=== PATIENT | female | born 1950 | race Caucasian/White ===

== ENCOUNTER 2020-02-15 09:15 | Outpatient (CLI) | payer MEDICARE, BC, SELFPAY ==
[2020-02-15 09:39] LABS: Basophils % 0.8 %; Eosinophils # 0.1 10^3/uL (0.0-0.8); Eosinophils % 2.5 %; Lymphocytes # 1.3 10^3/uL (0.8-4.8); Mean Corpuscular HGB Conc 32.5 g/dL (30.0-36.0); Mean Corpuscular Volume 92.4 fL (81-99); Mean Platelet Volume 10.7 fL (7.4-10.4); Monocytes # 0.5 10^3/uL (0.2-0.9); Monocytes % 11.3 %; Neutrophils # 2.8 10^3/uL (1.8-7.7); Neutrophils % 59.2 %; Nucleated Red Blood Cells % 0 %; Platelet Count 200 10^3/cmm (130-400); Red Blood Count 4.33 10^6/uL (4.1-5.3); Red Cell Distribution Width 13.1 % (12.1-15.1); White Blood Count 4.8 10^3/uL (4.0-10.0)
[2020-02-15 09:59] LABS: Alanine Aminotransferase 15 U/L (0-33); Albumin Level 4.4 g/dL (3.5-5.2); Alkaline Phosphatase 86 IU/L (35-105); Anion Gap 10.9 (5-19); Aspartate Amino Transferase 21 U/L (0-32); Blood Urea Nitrogen 15 mg/dL (8-23); Calcium 9.9 mg/dL (8.5-10.5); Carbon Dioxide 32 mmol/L (22-29); Chloride 105 mmol/L (98-107); Globulin 2.6 g/dL (1.3-4.6); Glomerular Filtration Rate 99.1 mL/min (90-130); Glucose 72 mg/dL (65-115); Osmolality Calculated 293 mOsm/kg (285-295); Potassium 3.9 mmol/L (3.5-5.1); Sodium 144 mmol/L (136-145); Total Bilirubin 0.2 mg/dL (0.15-1.2)
--- NOTE | 2020-02-15 11:23 | ONC FU_ITS ---
Dr. 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 The patient presented with iron deficiency anemia. Her colonoscopy on 02/22/2017 showed a malignant appearing lesion in the right colon. Biopsy showed poorly differentiated adenocarcinoma. The procedure also included removal of an adenomatous polyp from the transverse colon. She then underwent laparoscopic hand-assisted right hemicolectomy with primary anastomosis. Pathology showed poorly differentiated infiltrating adenocarcinoma measuring 6.0 cm in greatest dimension. Tumor was noted to invade through the muscularis propria into pericolonic tissues. There was evidence of lymphovascular invasion. There was involvement in 2 of 31 lymph nodes. She was seen initially on 05/20/2017. Further pathologic evaluation included MSI testing which showed loss of nuclear staining of MLH1 and PMS2, consistent with a mismatch repair deficient tumor. Given that finding, he recommended adjuvant chemotherapy with modified FOLFOX. She eventually did agree to treatment. She began her 1st cycle on 07/06/2017. She had significant side effects with her initial chemotherapy treatment, including nausea/vomiting, fatigue, and neuropathy. She had dose reductions in both the oxaliplatin and 5-FU with cycle 2, and beginning with cycle 3 on 08/10/17 and 08/26/17 the oxaliplatin was omitted. At that point, patient decided to take a break from chemotherapy until 09/21/2017 when agreed to complete 4 more cycle of modified dose of FOLFOX e.g. total 6 instead of recommended 12 of modified FOLFOX .Follow-up colonoscopy was done by Dr. Sneed in [place] in March 2018, as per patient it was charissa lFollow-up CT scan of abdomen pelvis done on 05/29/2019 showed no evidence of metastatic disease secondary to colon carcinoma. But there are few scattered hypodensities within the liver which are too small to characterize and follow-up CT scan is recommended in 3 months to document stability as early metastatic disease cannot be ruled out her tumor marker CEA checked on 05/29/2019 was 2.2 compared to 2.1 on 01/26/2019 and ALT was 18 AST was 21 with a normal hemoglobin/hematocritCT PET scan was done on 08/25/2019, showed no evidence of recurrent or residual malignancy. The liver hypodensities described the CT scan do not demonstrate abnormal FDG. And her CK was 1.9. Came for follow-up, denies any specific complaints, no nausea vomiting, no fever chills, no diarrhea constipation, no melena or hematochezia, no jaundice, no weight loss, appetite is good Medications: Lutein 1 (20 mg) Tablet Oral daily, Multiple Vitamins/Womens 1 Tablet Oral b.i.d. Allergies: Codeine Sulfate Review of Systems: Constitutional - Appetite is fair and weight is decreasing. No fever, chills, hot flashes, or night sweats. Energy level is poor, Pt reports significant fatigue, ENMT - No sinus congestion/drainage. No mouth sores. No sore throat or difficulty swallowing, Hematologic/Lymphatic - No abnormal bruising or bleeding, Respiratory - No shortness of breath. No cough. No pleuritic pain or hemoptysis, Cardiovascular - No angina pain. No palpitations, Gastrointestinal - No nausea or vomiting. No heartburn or acid reflux. Occasional diarrhea, no constipation. No blood in the stool or black stools, Genitourinary (F) - No dysuria or hematuria. No urinary frequency. No urgency or incontinence, Musculoskeletal - No joint or bone pain, Integumentary - Denies skin rashes or lesions, Neurologic - No headache or dizziness. No numbness/paresthesias or other focal neurologic symptoms, Psychiatric - No anxiety or depression. No insomnia. Vital Signs: Performed on Feb 15, 2020 11:05 Height - 66.00 in Weight - 105.4 lbs BSA - 1.52 sq.m BMI - 17.01 (LOW) Temperature - 97.2 F (LOW) Pulse - 67 /min Respiration - 18 /min BP - 115/72 mm(hg) O2 Sat - 100 % Pain - 0 Performance Status: 0 - Fully active, able to carry on all predisease activities without restrictions. (ECOG) Physical Examination: ENMT - No mouth sores, no jaundice, Respiratory - Lungs are clear, Cardiovascular - Regular rate and rhythm of heart, Abdomen - Soft, bowel sounds present, nontender, no mass palpable, Extremities - No visible edema or rash. Lab/Imaging: Test performed on Feb 15, 2020 09:26 Sodium 144 mmol/L Potassium 3.9 mmol/L Chloride 105 mmol/L CO2 32 mmol/L Anion Gap 10.9 BUN 15 mg/dL Creatinine 0.6 mg/dL Cr Clearance (Est) 66.7900 mL/min eGFR 99.1 mL/min Glucose 72 mg/dL Calcium 9.9 mg/dL Protein, Total 7.0 g/dL Albumin 4.4 g/dL Globulin 2.6 g/dL Bilirubin, Total 0.2 mg/dL ALT (SGPT) 15 U/L AST (SGOT) 21 U/L Alkaline Phosphatase 86 IU/L WBC 4.8 10 3/uL RBC 4.33 10 6/uL HGB 13.0 g/dL HCT 40.0 % MCV 92.4 fL MCH 30.0 pg MCHC 32.5 g/dL RDW 13.1 % Platelet Count 200 10 3/cmm MPV 10.7 fL Neutrophils 2.8 10 3/uL Lymphocytes 1.3 10 3/uL Monocytes 0.5 10 3/uL Eosinophils 0.1 10 3/uL Basophils 0.0 10 3/uL Neutrophil % 59.2 % Lymphocyte % 26.0 % Monocyte % 11.3 % Eosinophil % 2.5 % Basophils % 0.8 % Test performed on Aug 31, 2019 09:02 CEA 1.9 ng/mL Impression: 1. 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 2. She underwent hand-assisted laparoscopic right hemicolectomy on 02/22/2017. 3. s/p adjuvant chemotherapy with modified FOLFOX, cycle 1 beginning on 07/06/2017 and on 07/20/17 ,Oxaliplatin was discontinued because of progressive neuropathy she received 2 cycles of 5-FU infusion on 08/10/2017 and 08/26/2017. Patient took break from chemotherapy But because of mismatch repair deficient tumor oxaliplatin was added again when patient decided to restart her chemotherapy on 09/21/2017 for 4 more modified dose FOLFOX with reduced dose oxaliplatin and completed total 6 cycle of modified FOLFOX on 11/23/2017. Follow-up colonoscopy was done in March [address] 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 Follow-up CT scan of abdomen is recommended in 3 months to document stability as one of the differential could be early metastatic disease. Regarding her labs checked on 05/29/2019 showed LFTs and hemoglobin/hematocrit within normal limits and CEA 2.2 Plan: Discussed with patient regarding her labs white blood count 4.8 hemoglobin 13 crit 40 platelets 200,000 CMP within normal limits Clinically, patient doing well, no signs symptom suggestive of recurrence of disease and follow-up labs within normal range, will continue to monitor and she will return to clinic in 6 months with CBC CMP and CEA Signed By: Cathy Chang M.D. <<Signature on File>>
== END 2020-02-15 09:16 | disposition home or self-care (01) ==
LOC: ONCMED 09:20
PROVIDERS: PCP Family Medicine; Visit Provider Internal Medicine Hematology & Oncology
DX: Z08 Encounter for follow-up examination after completed treatment for malignant neoplasm (principal); Z85.038 Personal history of other malignant neoplasm of large intestine
CPT/HCPCS: 80053; 85025; G0463

== ENCOUNTER 2020-08-21 10:56 | Outpatient (CLI) | payer MEDICARE, BC, SELFPAY ==
[2020-08-21 12:10] LABS: Basophils % 0.4 %; Eosinophils # 0.1 10^3/uL (0.0-0.8); Eosinophils % 1.2 %; Hematocrit 40.3 % (37.0-47.0); Hemoglobin 12.9 g/dL (11.5-15.3); Lymphocytes # 1.2 10^3/uL (0.8-4.8); Mean Corpuscular Hemoglobin 29.5 pg (28.0-34.0); Mean Corpuscular Volume 92.2 fL (81-99); Mean Platelet Volume 10.9 fL (7.4-10.4); Monocytes # 0.5 10^3/uL (0.2-0.9); Monocytes % 9.6 %; Neutrophils # 3.25 10^3/uL (1.8-7.7); Neutrophils % 63.2 %; Nucleated Red Blood Cells % 0 %; Platelet Count 173 10^3/cmm (130-400); Red Blood Count 4.37 10^6/uL (4.1-5.3); Red Cell Distribution Width 13.2 % (12.1-15.1); White Blood Count 5.1 10^3/uL (4.0-10.0)
[2020-08-21 12:35] LABS: Carcinoembryonic Antigen 2.1 ng/mL (0.0-4.7)
[2020-08-21 12:46] LABS: Alanine Aminotransferase 18 U/L (0-33); Albumin Level 4.1 g/dL (3.5-5.2); Alkaline Phosphatase 100 IU/L (35-105); Aspartate Amino Transferase 19 U/L (0-32); Blood Urea Nitrogen 16 mg/dL (8-23); Calcium 9.4 mg/dL (8.5-10.5); Carbon Dioxide 28 mmol/L (22-29); Chloride 105 mmol/L (98-107); Globulin 2.7 g/dL (1.3-4.6); Glomerular Filtration Rate 82.7 mL/min (90-130); Glucose 98 mg/dL (65-115); Osmolality Calculated 291 mOsm/kg (285-295); Sodium 140 mmol/L (136-145); Total Bilirubin 0.3 mg/dL (0.15-1.2); Total Protein 6.8 g/dL (6.6-8.7)
--- NOTE | 2020-08-21 14:04 | ONC FU_ITS ---
Dr. 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 The patient presented with iron deficiency anemia. Her colonoscopy on 02/22/2017 showed a malignant appearing lesion in the right colon. Biopsy showed poorly differentiated adenocarcinoma. The procedure also included removal of an adenomatous polyp from the transverse colon. She then underwent laparoscopic hand-assisted right hemicolectomy with primary anastomosis. Pathology showed poorly differentiated infiltrating adenocarcinoma measuring 6.0 cm in greatest dimension. Tumor was noted to invade through the muscularis propria into pericolonic tissues. There was evidence of lymphovascular invasion. There was involvement in 2 of 31 lymph nodes. She was seen initially on 05/20/2017. Further pathologic evaluation included MSI testing which showed loss of nuclear staining of MLH1 and PMS2, consistent with a mismatch repair deficient tumor. Given that finding, he recommended adjuvant chemotherapy with modified FOLFOX. She eventually did agree to treatment. She began her 1st cycle on 07/06/2017. She had significant side effects with her initial chemotherapy treatment, including nausea/vomiting, fatigue, and neuropathy. She had dose reductions in both the oxaliplatin and 5-FU with cycle 2, and beginning with cycle 3 on 08/10/17 and 08/26/17 the oxaliplatin was omitted. At that point, patient decided to take a break from chemotherapy until 09/21/2017 when agreed to complete 4 more cycle of modified dose of FOLFOX e.g. total 6 instead of recommended 12 of modified FOLFOX .Follow-up colonoscopy was done by Dr. Sneed in [place] in March 2018, as per patient it was charissa lFollow-up CT scan of abdomen pelvis done on 05/29/2019 showed no evidence of metastatic disease secondary to colon carcinoma. But there are few scattered hypodensities within the liver which are too small to characterize and follow-up CT scan is recommended in 3 months to document stability as early metastatic disease cannot be ruled out her tumor marker CEA checked on 05/29/2019 was 2.2 compared to 2.1 on 01/26/2019 and ALT was 18 AST was 21 with a normal hemoglobin/hematocritCT PET scan was done on 08/25/2019, showed no evidence of recurrent or residual malignancy. The liver hypodensities described the CT scan do not demonstrate abnormal FDG. And her CK was 1.9. Came for follow-up, denies any specific complaints except generalized weakness and fatigue and persistent mild peripheral neuropathy otherwise no fever chills, no nausea or vomiting, no diarrhea constipation, no melena or hematochezia no abdominal pain, appetite is good. No jaundice. Medications: Glucosamine HCl (1500 mg) Tablet Oral daily, Lutein 1 (20 mg) Tablet Oral daily, Multiple Vitamins/Womens 1 Tablet Oral b.i.d. Allergies: Codeine Sulfate Review of Systems: Constitutional - Appetite is fair and weight is decreasing. No fever, chills, hot flashes, or night sweats. Energy level is poor, Pt reports fatigue, ENMT - No sinus congestion/drainage. No mouth sores. No sore throat or difficulty swallowing, Hematologic/Lymphatic - No abnormal bruising or bleeding, Respiratory - No shortness of breath. No cough. No pleuritic pain or hemoptysis, Cardiovascular - No angina pain. No palpitations, Gastrointestinal - No nausea or vomiting. No heartburn or acid reflux. Occasional diarrhea, no constipation. No blood in the stool or black stools, Genitourinary (F) - No dysuria or hematuria. No urinary frequency. No urgency or incontinence, Musculoskeletal - No joint or bone pain, Integumentary - Denies skin rashes or lesions, Neurologic - No headache or dizziness. No numbness/paresthesias or other focal neurologic symptoms, Psychiatric - No anxiety or depression. Positive for insomnia. Vital Signs: Performed on Aug 21, 2020 13:47 Height - 66.00 in Weight - 105.8 lbs (HIGH) BSA - 1.53 sq.m BMI - 17.08 (LOW) Temperature - 98.4 F Pulse - 90 /min Respiration - 16 /min BP - 113/66 mm(hg) O2 Sat - 99 % Pain - 3 Performance Status: 0 - Fully active, able to carry on all predisease activities without restrictions. (ECOG) Physical Examination: ENMT - No mouth sores, no thrush, no jaundice, Respiratory - Lungs are clear to auscultation, Cardiovascular - Regular rate and rhythm of heart, Abdomen - Soft, bowel sounds present, Extremities - No visible edema or rash. Lab/Imaging: Most recent lab results are not available for this patient. Impression: 1. 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 2. She underwent hand-assisted laparoscopic right hemicolectomy on 02/22/2017. 3. s/p adjuvant chemotherapy with modified FOLFOX, cycle 1 beginning on 07/06/2017 and on 07/20/17 ,Oxaliplatin was discontinued because of progressive neuropathy she received 2 cycles of 5-FU infusion on 08/10/2017 and 08/26/2017. Patient took break from chemotherapy But because of mismatch repair deficient tumor oxaliplatin was added again when patient decided to restart her chemotherapy on 09/21/2017 for 4 more modified dose FOLFOX with reduced dose oxaliplatin and completed total 6 cycle of modified FOLFOX on 11/23/2017. Follow-up colonoscopy was done in March [address] Sneed in [place], as per patient it showed no abnormality .Patient also has her Port-A-Cath removed since last visit Mild to moderate Thrombocytopenia due to chemotherapy or low-grade ITP resolved Follow-up CT scan of abdomen pelvis done on 05/29/2019 showed no evidence of metastatic disease secondary to colon cancer but there are a few scattered hypodensities within the liver which are too small to characterize. Follow-up CT scan of abdomen is recommended in 3 months to document stability as one of the differential could be early metastatic disease. Regarding her labs checked on 05/29/2019 showed LFTs and hemoglobin/hematocrit within normal limits and CEA 2.2 Plan: Discussed with patient regarding her labs white blood count 5.1 hemoglobin 12.9 hematocrit 40.3 platelets 173,000 CMP within normal limits CEA 2.1 Clinically, patient is doing well with no new signs symptom suggestive of recurrence of disease her follow-up lab is within normal range including tumor marker, Patient return to clinic in 6 months with CBC CMP Mild peripheral neuropathy, no more worsening rather improving, will continue with supportive care Signed By: Cathy Chang M.D. <<Signature on File>>
== END 2020-08-21 10:57 | disposition home or self-care (01) ==
LOC: ONCMED 10:59
PROVIDERS: PCP Family Medicine; Visit Provider Internal Medicine Hematology & Oncology
DX: Z08 Encounter for follow-up examination after completed treatment for malignant neoplasm (principal); Z85.038 Personal history of other malignant neoplasm of large intestine; G62.0 Drug-induced polyneuropathy; T45.1X5A Adverse effect of antineoplastic and immunosuppressive drugs, initial encounter; Z92.21 Personal history of antineoplastic chemotherapy; Z79.899 Other long term (current) drug therapy
CPT/HCPCS: 36415; 80053; 82378; 85025; G0463

== ENCOUNTER 2021-03-18 12:50 | Outpatient (CLI) | payer MEDICARE, BC, SELFPAY ==
[2021-03-18 14:04] LABS: Basophils % 0.8 %; Eosinophils # 0.1 10^3/uL (0.0-0.8); Eosinophils % 2.5 %; Hematocrit 40.1 % (37.0-47.0); Hemoglobin 12.8 g/dL (11.5-15.3); Lymphocytes # 1.5 10^3/uL (0.8-4.8); Lymphocytes % 29.3 %; Mean Corpuscular HGB Conc 31.9 g/dL (30.0-36.0); Mean Corpuscular Hemoglobin 29.4 pg (28.0-34.0); Mean Corpuscular Volume 92.2 fL (81-99); Mean Platelet Volume 13.2 fL (7.4-10.4); Monocytes # 0.6 10^3/uL (0.2-0.9); Monocytes % 10.6 %; Neutrophils # 2.93 10^3/uL (1.8-7.7); Neutrophils % 56.6 %; Nucleated Red Blood Cells % 0 %; Platelet Count 66 10^3/cmm (130-400); Red Blood Count 4.35 10^6/uL (4.1-5.3); Red Cell Distribution Width 13.1 % (12.1-15.1); White Blood Count 5.2 10^3/uL (4.0-10.0)
[2021-03-18 14:23] LABS: Alanine Aminotransferase 17 U/L (0-33); Albumin Level 4.2 g/dL (3.5-5.2); Alkaline Phosphatase 94 IU/L (35-105); Anion Gap 12.1 (5-19); Aspartate Amino Transferase 20 U/L (0-32); Blood Urea Nitrogen 17 mg/dL (8-23); Calcium 9.9 mg/dL (8.5-10.5); Carbon Dioxide 28 mmol/L (22-29); Chloride 101 mmol/L (98-107); Globulin 2.6 g/dL (1.3-4.6); Glomerular Filtration Rate 98.8 mL/min (90-130); Glucose 88 mg/dL (65-115); Osmolality Calculated 285 mOsm/kg (285-295); Potassium 4.1 mmol/L (3.5-5.1); Sodium 137 mmol/L (136-145); Total Bilirubin 0.3 mg/dL (0.15-1.2); Total Protein 6.8 g/dL (6.6-8.7)
--- NOTE | 2021-03-18 16:35 | ONC FU_ITS ---
Dr. 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 The patient presented with iron deficiency anemia. Her colonoscopy on 02/22/2017 showed a malignant appearing lesion in the right colon. Biopsy showed poorly differentiated adenocarcinoma. The procedure also included removal of an adenomatous polyp from the transverse colon. She then underwent laparoscopic hand-assisted right hemicolectomy with primary anastomosis. Pathology showed poorly differentiated infiltrating adenocarcinoma measuring 6.0 cm in greatest dimension. Tumor was noted to invade through the muscularis propria into pericolonic tissues. There was evidence of lymphovascular invasion. There was involvement in 2 of 31 lymph nodes. She was seen initially on 05/20/2017. Further pathologic evaluation included MSI testing which showed loss of nuclear staining of MLH1 and PMS2, consistent with a mismatch repair deficient tumor. Given that finding, he recommended adjuvant chemotherapy with modified FOLFOX. She eventually did agree to treatment. She began her 1st cycle on 07/06/2017. She had significant side effects with her initial chemotherapy treatment, including nausea/vomiting, fatigue, and neuropathy. She had dose reductions in both the oxaliplatin and 5-FU with cycle 2, and beginning with cycle 3 on 08/10/17 and 08/26/17 the oxaliplatin was omitted. At that point, patient decided to take a break from chemotherapy until 09/21/2017 when agreed to complete 4 more cycle of modified dose of FOLFOX e.g. total 6 instead of recommended 12 of modified FOLFOX .Follow-up colonoscopy was done by Dr. Sneed in [place] in March 2018, as per patient it was charissa lFollow-up CT scan of abdomen pelvis done on 05/29/2019 showed no evidence of metastatic disease secondary to colon carcinoma. But there are few scattered hypodensities within the liver which are too small to characterize and follow-up CT scan is recommended in 3 months to document stability as early metastatic disease cannot be ruled out her tumor marker CEA checked on 05/29/2019 was 2.2 compared to 2.1 on 01/26/2019 and ALT was 18 AST was 21 with a normal hemoglobin/hematocritCT PET scan was done on 08/25/2019, showed no evidence of recurrent or residual malignancy. The liver hypodensities described the CT scan do not demonstrate abnormal FDG. And her CK was 1.9. Came for follow-up, denies any specific complaints, no fever chills, no nausea or vomiting, no diarrhea or constipation, no nosebleed or gum bleed, no melena or hematochezia, no abdominal pain, no jaundice, as per patient she had recent episode of mild sinusitis, now resolved Medications: Glucosamine HCl (1500 mg) Tablet Oral daily, Lutein 1 (20 mg) Tablet Oral daily, Multiple Vitamins/Womens 1 Tablet Oral b.i.d. Allergies: Codeine Sulfate Review of Systems: Review of Systems is not available for this patient. Vital Signs: Performed on Mar 18, 2021 15:46 Height - 66.00 in Weight - 103.6 lbs (LOW) BSA - 1.51 sq.m BMI - 16.72 (LOW) Temperature - 98.1 F (LOW) Pulse - 73 /min Respiration - 18 /min BP - 132/84 mm(hg) O2 Sat - 98 % Pain - 0 Fatigue - 4 Performance Status: 0 - Fully active, able to carry on all predisease activities without restrictions. (ECOG) Physical Examination: ENMT - No mouth sores, no thrush, no jaundice, Respiratory - Lungs are clear to auscultation, Cardiovascular - Regular rate and rhythm of heart, Abdomen - Soft, bowel sounds present, No organomegaly, Extremities - No edema rash or petechia or ecchymosis. Lab/Imaging: Most recent lab results are not available for this patient. Impression: 1. 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 2. She underwent hand-assisted laparoscopic right hemicolectomy on 02/22/2017. 3. s/p adjuvant chemotherapy with modified FOLFOX, cycle 1 beginning on 07/06/2017 and on 07/20/17 ,Oxaliplatin was discontinued because of progressive neuropathy she received 2 cycles of 5-FU infusion on 08/10/2017 and 08/26/2017. Patient took break from chemotherapy But because of mismatch repair deficient tumor oxaliplatin was added again when patient decided to restart her chemotherapy on 09/21/2017 for 4 more modified dose FOLFOX with reduced dose oxaliplatin and completed total 6 cycle of modified FOLFOX on 11/23/2017. Follow-up colonoscopy was done in March [address] Sneed in [place], as per patient it showed no abnormality .Patient also has her Port-A-Cath removed since last visit Mild to moderate Thrombocytopenia due to chemotherapy or low-grade ITP resolved Follow-up CT scan of abdomen pelvis done on 05/29/2019 showed no evidence of metastatic disease secondary to colon cancer but there are a few scattered hypodensities within the liver which are too small to characterize. Follow-up CT scan of abdomen is recommended in 3 months to document stability as one of the differential could be early metastatic disease. Regarding her labs checked on 05/29/2019 showed LFTs and hemoglobin/hematocrit within normal limits and CEA 2.2 Plan: Discussed with patient regarding her labs white blood count 5.2 hemoglobin 12.8 hematocrit 40.1 platelets 66,000 compared to 173,000 previously Clinically, patient is doing well with no new signs symptom suggestive of recurrence of disease, follow-up labs shows drop in her platelet count but no evidence of gross bleeding, her hemoglobin is normal, etiology of mild/moderate thrombocytopenia is unclear but patient has history of unexplained thrombocytopenia in the past which is presumed to 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 And as patient mentioned she had episode of mild sinusitis which resolved, which may have triggered ITP again, will monitor, patient was advised to avoid NSAIDs or aspirin or any trauma, we will review her peripheral blood smear, she will return to clinic in 2 weeks with CBC if there is a progressive thrombocytopenia or any evidence of gross bleeding, will consider intervention and further investigation. Patient was advised in case any evidence of gross bleeding she need to call us otherwise return to clinic in 2 weeks with CBC Signed By: Cathy Chang M.D. <<Signature on File>>
[2021-03-20 18:59] LABS: LAB Peripheral Smear Sent for Review
== END 2021-03-18 12:51 | disposition home or self-care (01) ==
LOC: ONCMED 12:55
PROVIDERS: PCP Family Medicine; Visit Provider Internal Medicine Hematology & Oncology
DX: Z08 Encounter for follow-up examination after completed treatment for malignant neoplasm (principal); Z85.038 Personal history of other malignant neoplasm of large intestine; D69.6 Thrombocytopenia, unspecified; Z79.899 Other long term (current) drug therapy; Z92.21 Personal history of antineoplastic chemotherapy
CPT/HCPCS: 36415; 80053; 80500; 85025; 99214

== ENCOUNTER 2021-04-01 06:14 | Outpatient (CLI) | payer MEDICARE, BC, SELFPAY ==
[2021-04-01 15:51] LABS: Basophils # 0.1 10^3/uL (0.0-0.1); Basophils % 0.7 %; Eosinophils # 0.2 10^3/uL (0.0-0.8); Eosinophils % 2.9 %; Hematocrit 40.6 % (37.0-47.0); Lymphocytes # 1.8 10^3/uL (0.8-4.8); Lymphocytes % 25.4 %; Mean Corpuscular Hemoglobin 29.3 pg (28.0-34.0); Mean Corpuscular Volume 91.6 fL (81-99); Mean Platelet Volume 11.6 fL (7.4-10.4); Monocytes # 0.7 10^3/uL (0.2-0.9); Monocytes % 9.5 %; Neutrophils # 4.24 10^3/uL (1.8-7.7); Neutrophils % 61.2 %; Nucleated Red Blood Cells % 0 %; Platelet Count 151 10^3/cmm (130-400); Red Blood Count 4.43 10^6/uL (4.1-5.3); Red Cell Distribution Width 12.9 % (12.1-15.1); White Blood Count 6.9 10^3/uL (4.0-10.0)
--- NOTE | 2021-04-01 17:20 | ONC FU_ITS ---
Dr. 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 The patient presented with iron deficiency anemia. Her colonoscopy on 02/22/2017 showed a malignant appearing lesion in the right colon. Biopsy showed poorly differentiated adenocarcinoma. The procedure also included removal of an adenomatous polyp from the transverse colon. She then underwent laparoscopic hand-assisted right hemicolectomy with primary anastomosis. Pathology showed poorly differentiated infiltrating adenocarcinoma measuring 6.0 cm in greatest dimension. Tumor was noted to invade through the muscularis propria into pericolonic tissues. There was evidence of lymphovascular invasion. There was involvement in 2 of 31 lymph nodes. She was seen initially on 05/20/2017. Further pathologic evaluation included MSI testing which showed loss of nuclear staining of MLH1 and PMS2, consistent with a mismatch repair deficient tumor. Given that finding, he recommended adjuvant chemotherapy with modified FOLFOX. She eventually did agree to treatment. She began her 1st cycle on 07/06/2017. She had significant side effects with her initial chemotherapy treatment, including nausea/vomiting, fatigue, and neuropathy. She had dose reductions in both the oxaliplatin and 5-FU with cycle 2, and beginning with cycle 3 on 08/10/17 and 08/26/17 the oxaliplatin was omitted. At that point, patient decided to take a break from chemotherapy until 09/21/2017 when agreed to complete 4 more cycle of modified dose of FOLFOX e.g. total 6 instead of recommended 12 of modified FOLFOX .Follow-up colonoscopy was done by Dr. Sneed in [place] in March 2018, as per patient it was charissa lFollow-up CT scan of abdomen pelvis done on 05/29/2019 showed no evidence of metastatic disease secondary to colon carcinoma. But there are few scattered hypodensities within the liver which are too small to characterize and follow-up CT scan is recommended in 3 months to document stability as early metastatic disease cannot be ruled out her tumor marker CEA checked on 05/29/2019 was 2.2 compared to 2.1 on 01/26/2019 and ALT was 18 AST was 21 with a normal hemoglobin/hematocritCT PET scan was done on 08/25/2019, showed no evidence of recurrent or residual malignancy. The liver hypodensities described the CT scan do not demonstrate abnormal FDG. And her CK was 1.9. Episode of self-limiting isolated thrombocytopenia noted on labs March 18, 2021 when her platelet count went down to 66,000 and the repeat CBC on April 01, 2021 shows normal CBC as platelet count recovered 251,000 Came for follow-up, denies any specific complaints, no fever chills, no nausea or vomiting, no diarrhea or constipation, no melena hematochezia, no hemoptysis or hematemesis, no jaundice, no petechia or ecchymosis. Patient states she has lost about 4 to 5 pounds since her last visit in August 2020, patient said she has been dancing and watching her diet Medications: Glucosamine HCl (1500 mg) Tablet Oral daily, Lutein 1 (20 mg) Tablet Oral daily, Multiple Vitamins/Womens 1 Tablet Oral b.i.d. Allergies: Codeine Sulfate Review of Systems: Review of Systems is not available for this patient. Vital Signs: Performed on Apr 01, 2021 16:18 Height - 66.00 in Weight - 102.4 lbs (LOW) BSA - 1.50 sq.m BMI - 16.53 (LOW) Temperature - 98.2 F (LOW) Pulse - 73 /min Respiration - 18 /min BP - 126/80 mm(hg) O2 Sat - 93 % (LOW) Pain - 0 Fatigue - 3 Performance Status: 0 - Fully active, able to carry on all predisease activities without restrictions. (ECOG) Physical Examination: ENMT - No mouth sores, no thrush, no jaundice, Respiratory - Lungs are clear to auscultation, Cardiovascular - Regular rate and rhythm of heart, Abdomen - Soft, bowel sounds present, Extremities - No visible edema. Lab/Imaging: Most recent lab results are not available for this patient. Impression: 1. 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 2. She underwent hand-assisted laparoscopic right hemicolectomy on 02/22/2017. 3. s/p adjuvant chemotherapy with modified FOLFOX, cycle 1 beginning on 07/06/2017 and on 07/20/17 ,Oxaliplatin was discontinued because of progressive neuropathy she received 2 cycles of 5-FU infusion on 08/10/2017 and 08/26/2017. Patient took break from chemotherapy But because of mismatch repair deficient tumor oxaliplatin was added again when patient decided to restart her chemotherapy on 09/21/2017 for 4 more modified dose FOLFOX with reduced dose oxaliplatin and completed total 6 cycle of modified FOLFOX on 11/23/2017. Follow-up colonoscopy was done in March [address] Sneed in [place], as per patient it showed no abnormality .Patient also has her Port-A-Cath removed since last visit Mild to moderate Thrombocytopenia due to chemotherapy or low-grade ITP resolved Follow-up CT scan of abdomen pelvis done on 05/29/2019 showed no evidence of metastatic disease secondary to colon cancer but there are a few scattered hypodensities within the liver which are too small to characterize. Follow-up CT scan of abdomen is recommended in 3 months to document stability as one of the differential could be early metastatic disease. Regarding her labs checked on 05/29/2019 showed LFTs and hemoglobin/hematocrit within normal limits and CEA 2.2 Plan: Discussed with patient regarding her labs white blood count 6.9 hemoglobin 13 hematocrit 40.6 platelets 151,000 compared to 66,000 on March 18, 2021 Clinically, patient doing well with no new signs symptom suggesting of gross bleeding, her repeat CBC shows resolution of isolated thrombocytopenia. We will continue to monitor and she will return to clinic in 6 months with CBC CMP and CEA, patient was advised in case she has any evidence of gross bleeding, petechiae or ecchymosis she did call us otherwise return to clinic as scheduled Signed By: Cathy Chang M.D. <<Signature on File>>
== END 2021-04-01 06:15 | disposition home or self-care (01) ==
LOC: ONCMED 06:16
PROVIDERS: PCP Family Medicine; Visit Provider Internal Medicine Hematology & Oncology
DX: Z08 Encounter for follow-up examination after completed treatment for malignant neoplasm (principal); Z85.038 Personal history of other malignant neoplasm of large intestine; Z79.899 Other long term (current) drug therapy; Z92.21 Personal history of antineoplastic chemotherapy
CPT/HCPCS: 36415; 85025; 99214

== ENCOUNTER 2021-11-10 12:23 | Outpatient (CLI) | payer MEDICARE, BC, SELFPAY ==
[2021-11-10 13:46] LABS: Basophils % 0.6 %; Eosinophils # 0.1 10^3/uL (0.0-0.8); Eosinophils % 1.9 %; Hematocrit 42.4 % (37.0-47.0); Hemoglobin 13.5 g/dL (11.5-15.3); Lymphocytes # 1.5 10^3/uL (0.8-4.8); Lymphocytes % 20.8 %; Mean Corpuscular HGB Conc 31.8 g/dL (30.0-36.0); Mean Corpuscular Hemoglobin 29.1 pg (28.0-34.0); Mean Corpuscular Volume 91.4 fl (81-99); Mean Platelet Volume 10.4 fL (7.4-10.4); Monocytes # 0.7 10^3/uL (0.2-0.9); Monocytes % 10.3 %; Neutrophils # 4.62 10^3/uL (1.8-7.7); Neutrophils % 66.1 %; Nucleated Red Blood Cells % 0 %; Platelet Count 225 10^3/cmm (130-400); Red Blood Count 4.64 10^6/uL (4.1-5.3); Red Cell Distribution Width 12.9 % (12.1-15.1)
[2021-11-10 14:33] LABS: Carcinoembryonic Antigen 2.4 ng/mL (0.0-4.7)
[2021-11-10 14:44] LABS: Alanine Aminotransferase 19 U/L (0-33); Albumin Level 4.6 g/dL (3.5-5.2); Alkaline Phosphatase 94 IU/L (35-105); Anion Gap 12.5 (5-19); Aspartate Amino Transferase 23 U/L (0-32); Blood Urea Nitrogen 24 mg/dL (8-23); Calcium 8.7 mg/dL (8.5-10.5); Carbon Dioxide 28 mmol/L (22-29); Chloride 103 mmol/L (98-107); Globulin 2.4 g/dL (1.3-4.6); Glucose 90 mg/dL (65-115); Osmolality Calculated 292 mOsm/kg (285-295); Potassium 4.5 mmol/L (3.5-5.1); Sodium 139 mmol/L (136-145); Total Bilirubin 0.2 mg/dL (0.15-1.2)
--- NOTE | 2021-11-11 17:11 | ONC FU_ITS ---
Dr. 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 The patient presented with iron deficiency anemia. Her colonoscopy on 02/22/2017 showed a malignant appearing lesion in the right colon. Biopsy showed poorly differentiated adenocarcinoma. The procedure also included removal of an adenomatous polyp from the transverse colon. She then underwent laparoscopic hand-assisted right hemicolectomy with primary anastomosis. Pathology showed poorly differentiated infiltrating adenocarcinoma measuring 6.0 cm in greatest dimension. Tumor was noted to invade through the muscularis propria into pericolonic tissues. There was evidence of lymphovascular invasion. There was involvement in 2 of 31 lymph nodes. She was seen initially on 05/20/2017. Further pathologic evaluation included MSI testing which showed loss of nuclear staining of MLH1 and PMS2, consistent with a mismatch repair deficient tumor. Given that finding, he recommended adjuvant chemotherapy with modified FOLFOX. She eventually did agree to treatment. She began her 1st cycle on 07/06/2017. She had significant side effects with her initial chemotherapy treatment, including nausea/vomiting, fatigue, and neuropathy. She had dose reductions in both the oxaliplatin and 5-FU with cycle 2, and beginning with cycle 3 on 08/10/17 and 08/26/17 the oxaliplatin was omitted. At that point, patient decided to take a break from chemotherapy until 09/21/2017 when agreed to complete 4 more cycle of modified dose of FOLFOX e.g. total 6 instead of recommended 12 of modified FOLFOX .Follow-up colonoscopy was done by Dr. Sneed in [place] in March 2018, as per patient it was charissa lFollow-up CT scan of abdomen pelvis done on 05/29/2019 showed no evidence of metastatic disease secondary to colon carcinoma. But there are few scattered hypodensities within the liver which are too small to characterize and follow-up CT scan is recommended in 3 months to document stability as early metastatic disease cannot be ruled out her tumor marker CEA checked on 05/29/2019 was 2.2 compared to 2.1 on 01/26/2019 and ALT was 18 AST was 21 with a normal hemoglobin/hematocritCT PET scan was done on 08/25/2019, showed no evidence of recurrent or residual malignancy. The liver hypodensities described the CT scan do not demonstrate abnormal FDG. And her CK was 1.9. Episode of self-limiting isolated thrombocytopenia noted on labs March 18, 2021 when her platelet count went down to 66,000 and the repeat CBC on April 01, 2021 shows normal CBC as platelet count recovered to 151,000 Came for follow-up, denies any specific complaints, no fever chills, no nausea or vomiting, no diarrhea or constipation, no abdominal pain, no abdominal fullness, no weight loss, appetite is good Medications: Glucosamine HCl (1500 mg) Tablet Oral daily, Lutein 1 (20 mg) Tablet Oral daily, Multiple Vitamins/Womens 1 Tablet Oral b.i.d. Allergies: Codeine Sulfate Review of Systems: Review of Systems is not available for this patient. Vital Signs: Performed on Nov 10, 2021 14:55 Height - 66.00 in Weight - 106.0 lbs (HIGH) BSA - 1.53 sq.m BMI - 17.11 (LOW) Temperature - 97.6 F (LOW) Pulse - 90 /min Respiration - 18 /min BP - 125/76 mm(hg) O2 Sat - 99 % Pain - 0 Fatigue - 8 Performance Status: 0 - Fully active, able to carry on all predisease activities without restrictions. (ECOG) Physical Examination: ENMT - No mouth sores, no thrush, no jaundice, Respiratory - Lungs are clear to auscultation, Cardiovascular - Regular rate and rhythm of heart, Abdomen - Soft, bowel sounds present, Extremities - No visible edema. Lab/Imaging: Most recent lab results are not available for this patient. Impression: 1. 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 2. She underwent hand-assisted laparoscopic right hemicolectomy on 02/22/2017. 3. s/p adjuvant chemotherapy with modified FOLFOX, cycle 1 beginning on 07/06/2017 and on 07/20/17 ,Oxaliplatin was discontinued because of progressive neuropathy she received 2 cycles of 5-FU infusion on 08/10/2017 and 08/26/2017. Patient took break from chemotherapy But because of mismatch repair deficient tumor oxaliplatin was added again when patient decided to restart her chemotherapy on 09/21/2017 for 4 more modified dose FOLFOX with reduced dose oxaliplatin and completed total 6 cycle of modified FOLFOX on 11/23/2017. Follow-up colonoscopy was done in March [address] Sneed in [place], as per patient it showed no abnormality .Patient also has her Port-A-Cath removed since last visit Mild to moderate Thrombocytopenia due to chemotherapy or low-grade ITP resolved Follow-up CT scan of abdomen pelvis done on 05/29/2019 showed no evidence of metastatic disease secondary to colon cancer but there are a few scattered hypodensities within the liver which are too small to characterize. Follow-up CT scan of abdomen is recommended in 3 months to document stability as one of the differential could be early metastatic disease. Regarding her labs checked on 05/29/2019 showed LFTs and hemoglobin/hematocrit within normal limits and CEA 2.2 Plan: Discussed with patient regarding her labs white blood count 7 hemoglobin 13.5 g hematocrit 42.4 platelets 225,000 CMP within normal limits CEA 2.4 Clinically, patient doing well with no new signs symptom suggestive of recurrence of disease her lab work-up is within normal range including tumor marker CEA, will continue to monitor she will return to clinic in 6 months with CBC CMP and CEA Signed By: Cathy Chang M.D. <<Signature on File>>
== END 2021-11-10 12:24 | disposition home or self-care (01) ==
PROVIDERS: PCP Family Medicine; Visit Provider Internal Medicine Hematology & Oncology
DX: Z85.038 Personal history of other malignant neoplasm of large intestine (principal); D69.6 Thrombocytopenia, unspecified; D50.9 Iron deficiency anemia, unspecified; Z79.899 Other long term (current) drug therapy; Z92.21 Personal history of antineoplastic chemotherapy
CPT/HCPCS: 36415; 80053; 82378; 85025; 99214

== ENCOUNTER 2022-11-17 10:07 | Oncology outpatient (recurring) (ONCR) | payer MEDICARE, BC, SELFPAY ==
[2022-11-17 10:39] LABS: Basophils # 0.1 10^3/uL (0.0-0.1); Basophils % 0.9 %; Eosinophils # 0.1 10^3/uL (0.0-0.8); Eosinophils % 2.2 %; Hematocrit 41.9 % (37.0-47.0); Hemoglobin 13.4 g/dL (11.5-15.3); Lymphocytes # 1.2 10^3/uL (0.8-4.8); Lymphocytes % 21.2 %; Mean Corpuscular Volume 90.7 fl (81-99); Mean Platelet Volume 10.7 fL (7.4-10.4); Monocytes # 0.6 10^3/uL (0.2-0.9); Monocytes % 11.6 %; Neutrophils # 3.53 10^3/uL (1.8-7.7); Neutrophils % 63.9 %; Nucleated Red Blood Cells % 0 %; Platelet Count 195 10^3/cmm (130-400); Red Blood Count 4.62 10^6/uL (4.1-5.3); Red Cell Distribution Width 12.9 % (12.1-15.1); White Blood Count 5.5 10^3/uL (4.0-10.0)
[2022-11-17 11:11] LABS: Carcinoembryonic Antigen 2.5 ng/mL (0.0-4.7)
[2022-11-17 11:23] LABS: Alanine Aminotransferase 19 U/L (0-33); Albumin Level 4.2 g/dL (3.5-5.2); Alkaline Phosphatase 83 U/L (35-105); Anion Gap 13.1 (5-19); Aspartate Amino Transferase 22 U/L (0-32); Blood Urea Nitrogen 18 mg/dL (8-23); Calcium 9.3 mg/dL (8.5-10.5); Carbon Dioxide 29 mmol/L (22-29); Chloride 102 mmol/L (98-107); Globulin 2.5 g/dL (1.3-4.6); Glucose 90 mg/dL (65-115); Osmolality Calculated 291 mOsm/kg (285-295); Potassium 4.1 mmol/L (3.5-5.1); Sodium 140 mmol/L (136-145); Total Bilirubin 0.3 mg/dL (0.15-1.2); Total Protein 6.7 g/dL (6.6-8.7)
== END 2022-12-10 23:59 | disposition home or self-care (01) ==
PROVIDERS: PCP Family Medicine; Visit Provider Internal Medicine Hematology & Oncology
DX: Z08 Encounter for follow-up examination after completed treatment for malignant neoplasm (principal); Z85.038 Personal history of other malignant neoplasm of large intestine; Z90.49 Acquired absence of other specified parts of digestive tract; Z92.21 Personal history of antineoplastic chemotherapy
CPT/HCPCS: 36415; 80053; 82378; 85025; 99214

== ENCOUNTER 2022-12-23 07:49 | Outpatient (CLI) | payer MEDICARE, BC, SELFPAY ==
[2022-12-23] MEDS: iohexol 350 mg/mL 500 mL Btl (per mL) IV (08:12)
[2022-12-23] MEDS: iohexol 350 mg/mL 500 mL Btl (per mL) PO (08:13)
--- NOTE | 2022-12-23 09:00 | CT_ITS ---
WS: [id number] CT CHEST, ABDOMEN, AND PELVIS TECHNIQUE: Contrast-enhanced CT of the chest, abdomen, and pelvis with coronal and sagittal reformatt ed images. CLINICAL INFORMATION: follow up COMPARISON: None. DLP: 419.[address] scans at [facility] use at least one of these dose optimization techniques: automated e xposure control; mA and/or kV adjustment per patient size (includes targeted exams where dose is matc hed to clinical indication); or iterative reconstruction. CT CHEST: Both lungs are well aerated. No acute pulmonary infiltrates. No suspicious pulmonary parenchymal opac ities. No evidence of metastatic disease in the chest. No mediastinal or hilar lymphadenopathy. No ax illary lymphadenopathy. Mild thoracic curve. Mild thoracic kyphosis. Normal caliber thoracic aorta. CT ABDOMEN AND PELVIS: Prior postoperative changes RIGHT hemicolectomy. Mild diffuse fatty infiltration liver. Incidental he patic cysts or hemangiomas unchanged since 2019. Normal spleen. Normal pancreatic parenchymal enhance ment. Normal portal vein and splenic vein. Adrenal glands are normal. Normal renal parenchymal enhanc ement. No hydronephrosis. Tiny RIGHT renal cyst. Small esophageal hiatal hernia. Normal caliber abdom inal aorta. Sigmoid diverticulosis. Disc space narrowing worse at L3-L4 L4-L5 and L5-S1. Grade 1 anterolisthesis L5 on S1. CT/CT chest abdpel w/*[id number] IMPRESSION: 1. No evidence of metastatic disease in the chest abdomen or pelvis. 2. Mild diffuse fatty infiltration liver. 3. Stable hepatic cysts or small hemangiomas unchanged since 2019. 4. Prior postoperative changes RIGHT hemicolectomy. 5. No other suspicious findings.
== END 2022-12-23 07:50 | disposition home or self-care (01) ==
PROVIDERS: PCP Family Medicine; Visit Provider Internal Medicine Hematology & Oncology
DX: C18.9 Malignant neoplasm of colon, unspecified (principal); K76.0 Fatty (change of) liver, not elsewhere classified; K76.89 Other specified diseases of liver
CPT/HCPCS: 71260; 74177; Q9967

== ENCOUNTER 2023-06-08 14:09 | Oncology outpatient (recurring) (ONCR) | payer MEDICARE, BC, SELFPAY ==
[2023-06-08 14:19] VITALS: BP 109/73; PULSE 88; RESP 17; TEMP 37.2; O2SAT 98
[2023-06-08 15:02] LABS: Basophils % 0.8 %; Eosinophils # 0.1 10^3/uL (0.0-0.8); Eosinophils % 1.8 %; Hematocrit 39.9 % (36-47); Lymphocytes # 1.4 10^3/uL (0.8-4.8); Lymphocytes % 26.8 %; Mean Corpuscular HGB Conc 32.3 g/dL (30-55); Mean Corpuscular Hemoglobin 29.9 pg (27-33); Mean Corpuscular Volume 92.6 fl (85-98); Mean Platelet Volume 12.9 fL (7.4-10.4); Monocytes # 0.5 10^3/uL (0.2-0.9); Monocytes % 9.9 %; Neutrophils # 3.07 10^3/uL (1.8-7.7); Neutrophils % 60.5 %; Nucleated Red Blood Cells % 0 %; Platelet Count 132 10^3/cmm (157-399); Red Blood Count 4.31 10^6/uL (3.85-5.65); Red Cell Distribution Width 13.2 % (12.1-15.1); White Blood Count 5.07 10^3/uL (3.29-11.43)
[2023-06-08 15:27] LABS: Carcinoembryonic Antigen 1.9 ng/mL (0.0-4.7)
[2023-06-08 15:39] LABS: Alanine Aminotransferase 14 U/L (0-33); Albumin Level 4.2 g/dL (3.5-5.2); Alkaline Phosphatase 84 U/L (35-105); Anion Gap 13.2 (5-19); Aspartate Amino Transferase 17 U/L (0-32); Blood Urea Nitrogen 16 mg/dL (8-23); Calcium 8.9 mg/dL (8.5-10.5); Carbon Dioxide 30 mmol/L (22-29); Chloride 103 mmol/L (98-107); Globulin 2.5 g/dL (1.3-4.6); Glucose 113 mg/dL (65-115); Osmolality Calculated 296 mOsm/kg (285-295); Potassium 4.2 mmol/L (3.5-5.1); Sodium 142 mmol/L (136-145); Total Bilirubin 0.3 mg/dL (0.15-1.2); Total Protein 6.7 g/dL (6.6-8.7)
== END 2023-06-11 23:59 | disposition home or self-care (01) ==
LOC: ONCMED 14:10
PROVIDERS: Internal Medicine Hematology & Oncology; PCP Family Medicine; Visit Provider Internal Medicine Medical Oncology
DX: C18.9 Malignant neoplasm of colon, unspecified; Z90.49 Acquired absence of other specified parts of digestive tract; Z92.21 Personal history of antineoplastic chemotherapy; D50.9 Iron deficiency anemia, unspecified; Z79.899 Other long term (current) drug therapy
CPT/HCPCS: 36415; 80053; 82378; 85025; 99214